=== PATIENT | female | born 1960 | race Caucasian/White ===

== ENCOUNTER 2019-11-16 11:44 | Emergency (ER) | payer SELFPAY ==
[2019-11-16 11:46] VITALS: BP 95/54; PULSE 75; RESP 18; TEMP 36.6; O2SAT 97; BMI 27.1
[2019-11-16] MEDS: 0.9% Normal Saline 1,000 ML 1000 ML IV (12:21)
[2019-11-16 12:22] LABS: Absolute Lymphocyte Count 1.26 X10^3/uL (0.83-4.51); Absolute Neutrophil Count 5.2 X10^3/uL (2.0-7.7); Basophil# 0.01 X10^3/uL; Basophil% 0.1 % (0-1); Eosinophil# 0.02 X10^3/uL; Eosinophils% 0.3 % (0-5); Hemoglobin 13.8 g/dL (12.0-15.0); Lymphocyte # 1.26 X10^3/ul (4.0); Lymphocyte % 18.2 % (19-41); Mean Corp Hgb Conc 33.7 g/dL (32-36); Mean Corpuscular Hgb 30.8 pg (27.0-32.0); Mean Corpuscular Volume 91.5 fL (81-99); Mean Platelet Vol. 8.5 fl (6.2-12.0); Monocyte# 0.45 X10^3/uL; Monocyte% 6.5 % (0-10); NRBC Flagged by Analyzer 0 % (0-5); Neutrophil # 5.16 X10^3/uL (2.7-7.7); Neutrophil % 74.8 % (47-70); Platelet Count 201 K/mm3 (150-450); RBC Distribution Width CV 12.9 % (11.6-14.6); RBC Distribution Width SD 42.4 fl (35.1-43.9); Red Blood Count 4.48 M/mm3 (4.2-5.4); White Blood Count 6.9 K/mm3 (4.4-11.0)
[2019-11-16] MEDS: MethylPREDNISolone 125 MG/2 ML Vial IV (12:22)
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
[2019-11-16 12:39] LABS: Anion Gap 5 (5-15); BUN 7 mg/dL (7-18); BUN/Creat Ratio 9.1 RATIO (10-20); Calcium,Total 8.3 mg/dL (8.5-10.1); Chloride 100 mmol/L (98-107); Creatinine, Serum 0.77 mg/dL (0.55-1.02); EST Glomerular Filtration Rate 82 mL/min (>60); Est Glom Filt Rate - Afr Amer 99 mL/min (>60); Estimated Creatinine Clearance 65.88 ml/min; Glucose 102 mg/dL (74-106); Potassium 3.6 mmol/L (3.5-5.1); Sodium Level 134 mmol/L (136-145)
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
[2019-11-16 13:18] VITALS: BP 99/51; PULSE 71; RESP 18; O2SAT 96
== END 2019-11-16 13:30 | disposition home or self-care (01) ==
LOC: ED 12:30
PROVIDERS: Emergency Provider Emergency Medicine; PCP Family Medicine
DX: J06.9 Acute upper respiratory infection, unspecified (principal); Z77.098 Contact with and (suspected) exposure to other hazardous, chiefly nonmedicinal, chemicals
CPT/HCPCS: 71046; 80048; 85025; 87635; 96361; 96374; 99284; G2023; J7030; A4216; U0003

== ENCOUNTER → 2024-03-23 | Outpatient (CLI) | payer BC, SELFPAY | END | disposition home or self-care (01) | PROVIDERS: PCP Internal Medicine; Referring Provider Internal Medicine; Visit Provider Internal Medicine | DX: E04.9 Nontoxic goiter, unspecified (principal) | CPT/HCPCS: 76536 ==

== ENCOUNTER → 2024-04-17 | Outpatient (CLI) | payer BC, SELFPAY ==
--- NOTE | 2024-04-17 | FLU_PTH ---
PATIENT: ROSANA GODWIN LOC: [facility] U#:[id number] AGE/SX: 64/F ROOM: RE04/17/[address]: Dr. Stepan Najera MD : 1960 BED: DIS: 04/17/2024 SPEC #: [id number] RECD: 04/17/24 12:24 STATUS: JEET FELICIANO #: [id number] BRADY: 04/17/24 00:[address]: Stepan Najera DEPT: CYTOLOGY RECD BY: [place] ENTERED: 04/17/24 12:26 SP TYPE: Fluid OTHR DR: Dr. Adriana Mcdonnell MD Tissues: A - Thyroid gland, NOS B - Thyroid gland, NOS Procedures: Special Stain Group II Surgery Specimen Level IV Cytospin Fluid HEADER OPERATION: Fine needle aspiration of thyroid nodule PRE-OP DIAGNOSIS: Thyroid nodule TISSUE SUBMITTED: A- Left mid thyroid fluid, B- Left mid thyroid slides DIAGNOSIS CYTOLOGY A. Fine needle aspiration, left mid thyroid fluid (cytospins and cellblock): Negative for malignant cells. Adequate for evaluation. Consistent with benign follicular nodule ([place] Category II). See comment. B. Fine needle aspiration, left mid thyroid nodule (smears): Consistent with benign follicular nodule ([place] Category II). See comment. AM. 04/20/2024 COMMENT A. The specimen contains polymorphous lymphocytes and rare follicular cells. Clinical correlation is suggested. The [place] System for thyroid diagnostic categorization was used in the evaluation of this case. B. The [place] System for thyroid diagnostic categorization was used in the evaluation of this case. CYTOLOGY STUDY Slides are reviewed. CYTOLOGY GROSS A. Received is 30 ml of red,cloudy fluid labeled with the patient's name and and designated per the requisition as Left mid thyroid. Submitted for cytology preparation including cell block. B. Received are 4 smears labeled with the patient's name and designated per the requisition as Left mid thyroid. Submitted for staining. 04/17/2024 TC:5 CPT: 25686h0,02915
[2024-04-18 08:11] LABS: Thyroid Peroxidase AB 73 IU/mL (0-34)
== END | disposition home or self-care (01) ==
LOC: LAB 10:32
PROVIDERS: PCP Internal Medicine; Referring Provider Surgery; Visit Provider Surgery
DX: E04.1 Nontoxic single thyroid nodule (principal)
CPT/HCPCS: 36415; 86376; 88108; 88305; 88313